=== PATIENT | male | born 1960 | race Caucasian/White ===

== ENCOUNTER 2019-03-24 11:35 | Emergency (ER) | payer SELFPAY ==
[~2019-03-24] VITALS: Ht 167.6 cm; Wt 96.6 kg
[2019-03-24 15:29] VITALS: BP 182/105
== END 2019-03-24 15:15 | disposition home or self-care (01) ==
LOC: ED 11:35
DX: R42 Dizziness and giddiness (principal)
CPT/HCPCS: 87804; J8597